=== PATIENT | male | born 1955 | race African-American/Black ===

== ENCOUNTER 2016-08-27 09:32 | Emergency (ER) | payer MEDICARE ==
[2016-08-27 09:25] LABS: INFLUENZA A NEG (NEG); INFLUENZA B POS (NEG)
== END 2016-08-27 09:57 | disposition home or self-care (01) ==
LOC: CED 09:32
PROVIDERS: Physician Assistant
DX: J10.1 Influenza due to other identified influenza virus with other respiratory manifestations (principal); I10 Essential (primary) hypertension; F17.210 Nicotine dependence, cigarettes, uncomplicated
CPT/HCPCS: 87651; 87804; 99283